=== PATIENT | female | born 1970 | race African-American/Black ===

== ENCOUNTER 2020-09-02 23:48 | Emergency (ER) | payer OTHER ==
[~2020-09-02] VITALS: Ht 170.2 cm; Wt 87.3 kg
[2020-09-03] MEDS ORDERED: GI COCKTAIL 50ML BTL(HYOSCYAMINE/MAALOX/LIDOCAINE VISCOUS)(1:3:1) PO ONE (00:15)
[2020-09-03] MEDS ORDERED: NS 1,000 ML IV ONE (00:15)
[2020-09-03] MEDS ORDERED: ONDANSETRON 4MG/2ML VIAL IV ONE (00:30)
[2020-09-03] MEDS ORDERED: PANTOPRAZOLE 40MG VIAL (C9113 PER 1) IV ONE (00:30)
[2020-09-03 00:55] LABS: BASO % 0.3 % (0.0-1.0); EOS # 0.3 10^3/uL (0.0-0.5); EOS % 3.4 % (0.0-3.0); HEMATOCRIT 36.5 % (36.0-47.0); HEMOGLOBIN 11.8 g/dl (12.0-15.5); LYMPH # 1.4 10^3/uL (1.5-5.0); LYMPH % 15.8 % (24.0-44.0); MEAN CORPUSCULAR HGB CONC 32.3 g/dl (32.0-36.5); MEAN CORPUSCULAR VOLUME 86.7 fl (80.0-96.0); MONO # 0.7 10^3/uL (0.0-0.8); MONO % 8.5 % (0.0-5.0); NEUTROPHILS # 6.2 10^3/uL (1.5-8.5); NEUTROPHILS % 71.7 % (36.0-66.0); PLATELET COUNT, AUTOMATED 272 10^3/uL (150-450); RED BLOOD COUNT 4.21 10^6/uL (4.00-5.40); WHITE BLOOD COUNT 8.6 10^3/uL (4.0-10.0)
[2020-09-03 01:24] LABS: ALBUMIN 3.5 GM/DL (3.2-5.2); ALT/SGPT 33 U/L (12-78); BILIRUBIN,DIRECT < 0.1 MG/DL (0.0-0.2); BILIRUBIN,TOTAL 0.3 MG/DL (0.2-1.0); LIPASE 155 U/L (73-393); TOTAL PROTEIN 7.6 GM/DL (6.4-8.2)
[2020-09-03 01:25] LABS: BLOOD UREA NITROGEN 20 MG/DL (7-18); CALCIUM LEVEL 8.7 MG/DL (8.5-10.1); CARBON DIOXIDE LEVEL 28 MEQ/L (21-32); CHLORIDE LEVEL 109 MEQ/L (98-107); CK-MB VALUE MASS 1.5 NG/ML (<3.6); CPK CREATINE PHOSPHOKINASE 380 U/L (26-192); CREATININE FOR GFR 0.96 MG/DL (0.55-1.30); GLOMERULAR FILTRATION RATE > 60.0 (>58); GLUCOSE, FASTING 92 MG/DL (70-100); MB/CK RELATIVE INDEX 0.39 (< OR =4); POTASSIUM SERUM 4.2 MEQ/L (3.5-5.1); SODIUM LEVEL 138 MEQ/L (136-145); TROPONIN I < 0.02 NG/ML (< 0.10)
[2020-09-03 01:30] VITALS: BP 123/72
[2020-09-03] MEDS ORDERED: OMEP-218 PO (01:31)
--- NOTE | 2020-09-04 20:11 | ECGEPIP ---
[facility] - ED Test Date: 2020-09-03 Pat Name: ALEJANDRO ZHANG Department: Room: - Gender: Female Metal Welder: edwina : 1970 Requested By: ELIZABETH VIGIL Order Number: [id number] Reading MD: Glenny Thomas Measurements Intervals [place] Rate: 77 P: 55 CO: 174 QRS: 18 QRSD: 88 T: 23 QT: 384 QTc: 437 Interpretive Statements SINUS RHYTHM POSSIBLE RIGHT VENTRICULAR CONDUCTION DELAY NO PRIOR Electronically Signed on 09-04-2020 20:10:49 EDT by Glenny Thomas
== END 2020-09-03 01:45 | disposition home or self-care (01) ==
LOC: M ED 23:48
DX: K21.9 Gastro-esophageal reflux disease without esophagitis (principal)
CPT/HCPCS: 80048; 80076; 82550; 82553; 83690; 84484; 85025; 93005; 96361; 96374; 96375; 99284; C9113; J2405